=== PATIENT | male | born 1970 | race Caucasian/White ===

== ENCOUNTER 2018-09-17 11:13 | Inpatient (IN) | payer BC, OTHER ==
--- NOTE | 2018-09-17 12:03 | ED ---
Bite Injury/Animal - HPI Summary HPI Summary: Patient is a 47 y/o M presenting to ED with complaints of swelling of left thumb , red-streaking of left arm up to elbow after a cat bite. He states that he was bit by the cat two days ago, swelling at left thumb onset yesterday, red- streaking onset today. During evaluation, he states that the area is starting to feel warm. He additionally reports limited ROM of left thumb. No fever is reported, but patient reports that he has recently gotten over the flu. Cat is 17 years old and belongs to a friend, patient was watching the cat for the day. Patient's test case developer who is present states that the cat had, "old, rotten teeth" . Cat is believed to be fully vaccinated. No SOB, chest pain reported. PSHx of colon surgery for diverticulitis, patient denies taking any daily medications. On triage, pain is rated 2/10. Nothing is noted to aggravate/alleviate Sx. Home medications, allergies, and nurse's note are reviewed. - History of Current Complaint Chief Complaint: EDAnimalBite Stated Complaint: CAT BITE ON FINGER PER PT Time Seen by Provider: 09/17/18 11:39 Hx Obtained From: Patient, Other: - test case developer Onset of Injury: Happened days ago - bite onset two days ago, swelling yesterday , streaking/warmness today, Still Present Type of Bite: Pet - cat Has Animal Been Immunized?: Yes - believed to be Severity Currently: Mild - 2/10 Pain Intensity: 2 Pain Scale Used: 0-10 Numeric - 2/10 Character: Puncture Aggravating Factor(s): Nothing Alleviating Factor(s): Nothing Associated Signs And Symptoms: Positive: Erythema, Swelling, Lymphadenopathy, Limited ROM - Allergies/Home Medications Allergies/Adverse Reactions: Allergies Allergy/AdvReac Type Severity Reaction Status Date / Time methotrexate AdvReac Eyes Verified 09/17/18 11:22 Itchy/Swollen/Red/Watery PMH/Surg Hx/FS Hx/Imm Hx Endocrine/Hematology History: Denies: Hx Diabetes Cardiovascular History: Denies: Hx Hypertension History: Denies: Hx Renal Disease - Surgical History Surgery Procedure, Year, and Place: 3 hernia surgeries with mesh R side, R salivary gland removed Infectious Disease History: No Infectious Disease History: Denies: Traveled Outside the [place] in Last 30 Days - Family History Known Family History: Positive: Cardiac Disease, Diabetes - Social History Substance Use Type: Reports: None Smoking Status (MU): Current Every Day Smoker Review of Systems Negative: Fever Negative: Chest Pain Negative: Shortness Of Breath Positive: Edema - of left thumb Skin: Other - POSITIVE - CAT BITE, RED STREAKING, WARMNESS OF LEFT ARM All Other Systems Reviewed And Are Negative: Yes Physical Exam - Summary Physical Exam Summary: Appearance: well appearing, no pain distress Skin: warm, dry, reflects adequate perfusion; puncture wound of left thumb, lymphangetic streaking up to left axilla, adenopathy at left axilla, Head/face: normal Eyes: EOMI, DEBBIE ENT: mucous membranes moist Neck: supple, non-tender Respiratory: CTA, breath sounds present Cardiovascular: RRR, pulses symmetrical Abdomen: non-tender, soft Bowel Sounds: present Musculoskeletal: normal, strength/ROM intact Neuro: normal, sensory motor intact, A&Ox3 Triage Information Reviewed: Yes Vital Signs On Initial Exam: Initial Vitals Temp Pulse Resp BP Pulse Ox 97.8 F 69 15 135/83 95 09/17/18 11:20 09/17/18 11:20 09/17/18 11:20 09/17/18 11:20 09/17/18 11:20 Vital Signs Reviewed: Yes Diagnostics - Vital Signs Vital Signs Temp Pulse Resp BP Pulse Ox 09/17/18 11:20 97.8 F 69 15 135/83 95 - Laboratory Result Diagrams: 09/17/18 11:52 09/17/18 11:52 Lab Statement: Any lab studies that have been ordered have been reviewed, and results considered in the medical decision making process. - Radiology L hand Radiology Interpretation Completed By: Radiologist - IMPRESSION: NO ACUTE OSSEOUS INJURY. IF SYMPTOMS PERSIST, RECOMMEND REPEAT IMAGING. Bite Injury Course/Dx - Course Course Of Treatment: Nurse's notes reviewed. Patient with extensive lymphangitis from Bite to the left thumb. No evidence of tenosynovitis. X-ray negative for foreign body. Tetanus updated. Zosyn given here. Admit for further. - Diagnoses Differential Diagnosis/HQI/PQRI: Positive: Superficial Infection, Deep Space Infection, Tenosynovitis, Other - abscess Provider Diagnosis: Cat bite, Lymphadenitis - Provider Notifications Discussed Care Of Patient With: Sabine Goldsmith Time Discussed With Above Provider: 11:56 Instructed by Provider To: Other - Patient's case was discussed with Dr. Goldsmith, Dr. Goldsmith accepts for admission. Discharge - Sign-Out/Discharge Documenting (check all that apply): Patient Departure - admit Patient Received Moderate/Deep Sedation with Procedure: No - Discharge Plan Condition: Fair Disposition: ADMITTED TO [facility] Referrals: Tulio Terry MD [Primary Care Provider] - - Billing Disposition and Condition Condition: FAIR Disposition: Admitted to [facility] - Attestation Statements Document Initiated by Scribe: Yes Documenting Scribe: ARABELLA MADISON Provider For Whom Scribe is Documenting (Include Credential): SKYLA VALENCIA MD Scribe Attestation: IARABELLA, scribed for SKYLA VALENCIA MD on 09/17/18 at 1303. Scribe Documentation Reviewed: Yes Provider Attestation: The documentation as recorded by the ARABELLA pitt accurately reflects the service I personally performed and the decisions made by , SKYLA VALENCIA MD Status of Scribe Document: Viewed
[2018-09-17 12:06] LABS: ABS Basophils 0.1 10^3/ul (0-0.2); ABS Eosinophils 0.4 10^3/ul (0-0.6); ABS Lymphocytes 1.4 10^3/ul (1.0-4.8); ABS Monocytes 0.8 10^3/ul (0-0.8); ABS Neutrophils 6.2 10^3/ul (1.5-7.7); ABS Nucleated RBC 0 10^3/ul; Eosinophil % 4.2 %; Hematocrit 43 % (36-46); Hemoglobin 14.9 g/dL (14.0-18.0); Lymphocyte % 16.2 %; Mean Corpuscular HGB Conc 35 g/dL (31-36); Mean Corpuscular Hemoglobin 34 pg (27-31); Mean Corpuscular Volume 97 fL (80-94); Mean Platelet Volume 7.4 fL (7.4-10.4); Nucleated Red Blood Cells % 0; Platelet Count 217 10^3/uL (150-450); Red Blood Count 4.42 10^6 /uL (4.18-5.48); Red Cell Distribution Width 14 % (10.5-15); White Blood Count 8.9 10^3/uL (3.5-10.8)
[2018-09-17 12:24] LABS: Albumin 4.5 g/dL (3.2-5.2); Albumin/Globulin Ratio 1.8 (1-3); BUN/Creatinine Ratio 18.9 (8-20); Calcium 9.2 mg/dL (8.6-10.3); EGFR Non-African American 90.1 (>60); Globulin 2.5 g/dL (2-4); Potassium 3.9 mmol/L (3.5-5.0); Total Bilirubin 0.8 mg/dL (0.2-1.0)
[2018-09-17] MEDS ORDERED: Acetaminophen TAB* 325 MG PO PRN (12:37)
[2018-09-17] MEDS ORDERED: Ondansetron INJ* 2 MG/ML VIAL IV PRN (12:37)
[2018-09-17] MEDS ORDERED: Piperacillin/Tazobac ADVAN(*) 3.375 GM in NS 0.9% 100 ML* 100 ML IVPB ONE (12:39)
[2018-09-17] MEDS ORDERED: Tetan/Diph/Pertus SYR(Tdap)* 0.5 ML SYR(BOOSTRIX) use SYR IM ONE (12:42)
[2018-09-17] MEDS ORDERED: Zosyn per Pharmacy* NOTE FOLLOW UP SCH (13:00)
--- NOTE | 2018-09-17 14:11 | HP ---
CC: Dr. Tulio Terry; Dr. Sabine oGldsmith* ADMISSION HISTORY AND PHYSICAL: DATE OF ADMISSION: 09/17/18 PRIMARY CARE PROVIDER: Dr. Tulio Terry. MY ATTENDING WHILE IN THE HOSPITAL: Dr. Sabine Goldsmith* (dictated by PEDRITO Rockwell). CHIEF COMPLAINT: Redness and swelling in the left upper extremity x3 days after a cat bite. HISTORY OF PRESENT ILLNESS: Mr. Maier is a 47-year-old male with a past medical history significant for diverticulitis complicated by colovesicular fistula; history of heavy alcohol abuse for 3 years, now in remission, who presents to the emergency department after for 1 week he was feeling very poorly with fevers, chills, shortness of breath, abdominal pain, and diarrhea, which he attributed to a flu-like illness. He was cat-sitting for a well known domesticated house cat, who bit his thumb. The patient states the cat was up to date on his vaccinations per the beauty director. The patient did not seek any medical attention at that time, but did do appropriate wound care with washing with soap and water, applying Neosporin and applying another wound topical application in an attempt to "draw out the bacteria." The patient had full range of motion after the bite; however, over the past 2 days, the swelling in his thumb has gotten worse and then this morning when he woke up, the swelling had spread all the way down his arm and a streak to his axilla. The patient states that this morning he had pain with movement in his left elbow and shoulder, but still retained full range of motion. The patient states that the range of motion of his thumb was decreased. The patient denies other pain. No fevers or chills since his flu syndrome has resolved, which occurred yesterday. The patient states that he has had intermittent abdominal pain for years now, but it is in his epigastric region and is accompanied with significant amount of bright red blood per rectum after this. The patient states that this happened very frequently while he was drinking alcohol and has persisted since then with a decreased frequency. The patient has not been evaluated by fur buyer. The patient has never had a colonoscopy. Due to concern for cat bite with lymphangitic spread, we were asked to evaluate the patient for admission to the hospital. PAST MEDICAL HISTORY: Colovesicular fistula due to complicated diverticulitis; sarcoidosis, in remission after 2 years of steroids; viral meningitis as a child ; history of recent alcohol abuse, now in remission. PAST SURGICAL HISTORY: Partial colectomy, bladder repair, vasectomy, 3 hernia repairs. MEDICATIONS: The patient takes no routine medications. ALLERGIES: METHOTREXATE caused mucositis. FAMILY HISTORY: The patient's mother of an OH at 73. The patient's biological father had diabetes mellitus, but it is unknown what he of. The patient has 2 siblings who of complications of drug abuse. The patient has a brother who has difficult to control hypertension and 6 other siblings who are healthy. SOCIAL HISTORY: The patient smokes 3 to 4 cigarettes a day. The patient abused alcohol to a degree that he cannot quantify how much alcohol he drank for approximately 3 years, but is currently in remission. The patient takes edible marijuana daily. The patient has no other illicit drug use. 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 The patient is . The patient has no children. The patient's surrogate decision maker will be his partner, Dalia Corcoran. REVIEW OF SYSTEMS: A 14-point review of systems was reviewed with the patient and is negative except as above in the HPI. PHYSICAL EXAMINATION GENERAL: The patient is a 47-year-old male, who appears stated age and sitting comfortably in bed, in no acute distress. VITAL SIGNS: At the time of evaluation, temperature 97.8, pulse rate 61, respiratory rate 15, oxygen saturation 95% on room air, blood pressure 135/83. HEENT: Head: Normocephalic, atraumatic. Sclerae anicteric. No conjunctival injection. Nasal mucosa moist. Oral mucosa moist. No pharyngeal erythema, discharge, or exudate. NECK: Supple, nontender. No lymphadenopathy. No carotid bruits auscultated. No JVD. RESPIRATORY: Clear to auscultation bilaterally. No wheezes, rales, or rhonchi. Good air exchange bilaterally. CARDIAC: Regular rate and rhythm. No clicks, murmurs, gallops, or rubs. Pulses are 2+ in the bilateral dorsalis pedis, posterior tibialis, and radial areas. ABDOMEN: Soft, nontender, nondistended. Bowel sounds present and normoactive in all 4 quadrants. No hepatosplenomegaly. No abdominal bruits auscultated. No hepatojugular reflux. GENITOURINARY: No suprapubic or CVA tenderness. NEURO: Cranial nerves II through XII grossly intact. No focal deficits. Alert and oriented x3. PSYCHIATRIC: Pleasant and cooperative. SKIN: Clean, dry, and intact. No rash. The patient has 2 small puncture wounds on his left thumb on the lateral aspect, which are red and swollen. The patient is able to move his thumb at its base, but is unable to flex it. The patient has straight line of red streaking up the medial aspect of his arm and to his armpit. The patient has palpable tender lymph nodes in his right axilla. There is no suppuration. There is no fluctuant pocket of abscess. DIAGNOSTIC STUDIES/LAB DATA: White blood cell count 8.9, hemoglobin 14.9, MCV 97, MCH 34, platelet count 217. Sodium 136, potassium 3.9, chloride 107, carbon dioxide 22, anion gap 7, BUN 17, creatinine 0.9, glucose 101, lactic acid 0.6, calcium 9.2. Bilirubin 0.8, AST 33, ALT 99, alkaline phosphatase 48. Protein 7.0, albumin 4.5, globulin 2.5. Studies: Hand x-ray shows no acute bony abnormality. ASSESSMENT AND PLAN: Impression: Mr. Maier is a 47-year-old male with past medical history significant for complicated diverticulitis with colovesicular fistula and partial colectomy; history of alcohol abuse; and history of sarcoidosis, now in remission, who had a cat bite on Monday with progressive worsening of swelling and pain in his hand with spreading up his arm and into his armpit. The patient will be admitted to the hospital for IV antibiotics due to concern for risk for systemic infection. 1. Cat bite with associated cellulitis and lymphangitic spread. The patient has no signs of systemic infection at this time except for lymph nodes in his armpit being swollen and lymphangitic spread up his arm. The patient has no white blood cell count, no fevers, no chills, no shortness of breath, no diarrhea. The patient has applied topical antibiotic treatment, but has taken no other antibiotics. We will start the patient on Zosyn and likely transition to oral Augmentin tomorrow if his disease improves. The patient will be given a tetanus shot. Local wound care has already been performed. The cat that bit the patient is up-to-date on his vaccinations and there is no concern for rabies. 2. History of colovesicular fistula, diverticulitis. The patient has intermittent abdominal pain with bright red blood per rectum in a similar pattern to when he had the colovesicular fistula. The patient is asymptomatic at this time; however, close followup with his primary care provider and Gastroenterology should be performed. The patient has a normal hemoglobin at this time and macrocytosis is possibly related to alcohol abuse. The patient should have outpatient iron, B12, and folate studies if indicated. 3. DVT prophylaxis: The patient will be up ad daniel. 4. FEN: The patient will have a regular unrestricted diet. There is no need for fluids at this time. 5. Transaminitis. The patient has a slight transaminitis with an ALT greater than AST elevation. This is likely related to the patient's recent viral illness. It does not have a correct pattern for continued alcohol abuse and the patient incredibly states that he is abstinent. These should be repeated at some point in the future to assess for alcoholic hepatosteatosis, though this is not likely the cause given the timing of his last drink. Other causes of elevated LFTs should be considered if the patient has persistent transaminitis. 6. Code status: The patient would like to be a full code. TIME SPENT: Approximately 40 minutes was spent on the admission of this patient , 20 of which was spent [id number] with the patient obtaining history and physical and discussing treatment plan. This plan was discussed with my attending, Dr. Sabine Goldsmith, and she is in agreement. PEDRITO ROCKWELL [id number]/[facility] #: [id number] CLAUDE
[2018-09-17] MEDS: ZOSYN 3.375 GM Q8H per EXTENDED INFUSION IVPB SCH ×2 (17:15)
[2018-09-18] MEDS: ZOSYN 3.375 GM Q8H per EXTENDED INFUSION IVPB SCH ×6 (01:05→17:08)
[2018-09-18 08:31] LABS: ABS Basophils 0.1 10^3/ul (0-0.2); ABS Eosinophils 0.5 10^3/ul (0-0.6); ABS Lymphocytes 1.7 10^3/ul (1.0-4.8); ABS Monocytes 0.8 10^3/ul (0-0.8); ABS Neutrophils 3.8 10^3/ul (1.5-7.7); ABS Nucleated RBC 0 10^3/ul; Hematocrit 42 % (36-46); Hemoglobin 14.6 g/dL (14.0-18.0); Lymphocyte % 25.2 %; Mean Corpuscular HGB Conc 35 g/dL (31-36); Mean Corpuscular Hemoglobin 34 pg (27-31); Mean Corpuscular Volume 98 fL (80-94); Mean Platelet Volume 7.7 fL (7.4-10.4); Nucleated Red Blood Cells % 0.1; Platelet Count 216 10^3/uL (150-450); Red Blood Count 4.28 10^6 /uL (4.18-5.48); Red Cell Distribution Width 14 % (10.5-15); White Blood Count 6.9 10^3/uL (3.5-10.8)
[2018-09-18 08:51] LABS: EGFR African American 96.5 (>60); EGFR Non-African American 79.8 (>60); Potassium 3.9 mmol/L (3.5-5.0)
--- NOTE | 2018-09-18 14:14 | PN ---
Subjective Date of Service: 09/18/18 Interval History: Patient reports he feels well today. Reports swelling on left hand has decreased since admission. Reports left thumb swelling is still present. Reports redness on hand and up are has lightened and receded slightly since admission last evening.Denies fever, chills, nausea, vomiting, diarrhea. Objective Active Medications: Acetaminophen (Tylenol Tab*) 650 mg PO Q6H PRN PRN Reason: FEVER/PAIN Piperacillin Sod/Tazobactam (Sod 3.375 gm/ Sodium Chloride) 100 mls @ 25 mls/ hr IVPB Q8H [facility] Last Admin: 09/18/18 08:58 Dose: 25 mls/hr Ondansetron HCl (Zofran Inj*) 4 mg IV Q6H PRN PRN Reason: NAUSEA Pharmacy Consult (Zosyn Per Pharmacy*) 1 note FOLLOW UP .ZOSYN PER PHARMACY [facility] Vital Signs - 8 hr 09/18/18 09/18/18 07:15 11:14 Temperature 97.7 F 98.0 F Pulse Rate 56 59 Respiratory 20 20 Rate Blood Pressure 128/77 120/87 (mmHg) O2 Sat by Pulse 98 96 Oximetry Oxygen Devices in Use Now: None Appearance: Comfortable, NAD Eyes: No Scleral Icterus Ears/Nose/Mouth/Throat: Clear Oropharnyx, Mucous Membranes Moist Neck: NL Appearance and Movements; NL JVP Respiratory: Symmetrical Chest Expansion and Respiratory Effort, Clear to Auscultation Cardiovascular: NL Sounds; No Murmurs; No JVD, RRR, No Edema Abdominal: NL Sounds; No Tenderness; No Distention Lymphatic: No Cervical Adenopathy, No Axillary Adenopathy Extremities: - - Mild swelling and redness to left hand underneath thumb and left thumb. Redness extends to mid bicep on inner ascpet of left arm. 3 small scabs on left thumb Skin: - - as above Neurological: Alert and Oriented x 3 Nutrition: Taking PO's Result Diagrams: 09/18/18 08:00 09/18/18 08:00 Additional Lab and Data: Laboratory Results - last 24 hr 09/17/18 09/18/18 09/18/18 19:54 08:00 08:00 WBC 6.9 RBC 4.28 Hgb 14.6 Hct 42 MCV 98 H MCH 34 H MCHC 35 RDW 14 Plt Count 216 MPV 7.7 Neut % (Auto) 54.9 Lymph % (Auto) 25.2 [place] % (Auto) 11.3 Eos % (Auto) 7.0 Baso % (Auto) 1.6 Absolute Neuts (auto) 3.8 Absolute Lymphs (auto) 1.7 Absolute Monos (auto) 0.8 Absolute Eos (auto) 0.5 Absolute Basos (auto) 0.1 Absolute Nucleated RBC 0 Nucleated RBC % 0.1 Sodium 140 Potassium 3.9 Chloride 108 Carbon Dioxide 21 L Anion Gap 11 BUN 13 Creatinine 1.00 Est GFR ( Amer) 96.5 Est GFR (Non-Af Amer) 79.8 BUN/Creatinine Ratio 13.0 Glucose 131 H Calcium 9.0 HIV 1&2 Antibody Nonreactive Microbiology and Other Data: Microbiology 09/17/18 11:56 Aerobic Blood Culture - Preliminary Blood Venous No Growth Day 1 Anaerobic Blood Culture - Preliminary No Growth Day 1 09/17/18 11:52 Aerobic Blood Culture - Preliminary Blood Venous No Growth Day 1 Anaerobic Blood Culture - Preliminary No Growth Day 1 Assess/Plan/Problems-Billing Assessment: 47 yr old male with pmh colovesicular fistula, sarcoidosis, alcohol abuse; whp presented to ED with swelling and redness to LUE after cat bit - Patient Problems (1) Cat bite involving extremity Comment: - Cat bite on left thumb one week ago which led to redness and swelling (2) Cellulitis Comment: - Admitted after 2 days of increase redness and swelling to left thumb and left arm. - Patient noted redness increase to left armpit therefore presented to ED 09/17 - Started on Zosyn in ED which has been continued inpatient. Plan to discharge on Augmentin. - Prelim blood cultures no growth - Afebrile, no leukocytosis, no tachycardia (3) Lymphadenopathy Comment: - Lymph nodes noted to be swollen in armpit on exam in ED, but today resolved. (4) Colovesical fistula Comment: - Hx of colovesical fistula - Reports he has has intermittent abd pain and bright red blood per rectum - Patient will need close follow up with PCP and GI (5) Full code status (6) DVT prophylaxis Comment: - Ambulation Attending: Raymond Tadeo
[2018-09-19] MEDS: ZOSYN 3.375 GM Q8H per EXTENDED INFUSION IVPB SCH ×4 (01:32→09:05)
[2018-09-19 08:14] VITALS: BP 146/90
[2018-09-19 08:49] LABS: ABS Basophils 0.1 10^3/ul (0-0.2); ABS Eosinophils 0.6 10^3/ul (0-0.6); ABS Lymphocytes 1.9 10^3/ul (1.0-4.8); ABS Monocytes 0.9 10^3/ul (0-0.8); ABS Neutrophils 3.3 10^3/ul (1.5-7.7); ABS Nucleated RBC 0 10^3/ul; Eosinophil % 8.3 %; Hematocrit 44 % (36-46); Hemoglobin 15.5 g/dL (14.0-18.0); Lymphocyte % 28.8 %; Mean Corpuscular HGB Conc 35 g/dL (31-36); Mean Corpuscular Hemoglobin 34 pg (27-31); Mean Corpuscular Volume 98 fL (80-94); Mean Platelet Volume 7.7 fL (7.4-10.4); Nucleated Red Blood Cells % 0.2; Platelet Count 255 10^3/uL (150-450); Red Blood Count 4.54 10^6 /uL (4.18-5.48); Red Cell Distribution Width 13 % (10.5-15); White Blood Count 6.8 10^3/uL (3.5-10.8)
[2018-09-19 09:02] LABS: Albumin 4.6 g/dL (3.2-5.2); Albumin/Globulin Ratio 1.8 (1-3); BUN/Creatinine Ratio 14.5 (8-20); Calcium 9.6 mg/dL (8.6-10.3); EGFR African American 86.4 (>60); EGFR Non-African American 71.4 (>60); Globulin 2.6 g/dL (2-4); Potassium 4.1 mmol/L (3.5-5.0); Total Bilirubin 0.6 mg/dL (0.2-1.0); Total Protein 7.2 g/dL (6.4-8.9)
--- NOTE | 2018-09-19 13:09 | DS ---
CC: Dr. Terry* DISCHARGE SUMMARY: DATE OF ADMISSION: 09/17/18 DATE OF DISCHARGE: 09/19/18 PRIMARY CARE PROVIDER: Dr. Terry. ATTENDING PHYSICIAN: Dr. Raymond Tadeo* (dictated by Mt Shabazz NP). PRIMARY DIAGNOSES: 1. Cellulitis secondary to a cat bite. 2. 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 SECONDARY DIAGNOSES: 1. History of sarcoidosis, in remission after 2 years of steroids. 2. Viral meningitis as a child. 3. Recent alcohol abuse, last drink greater than a month ago. CONSULTATIONS WHILE IN THE HOSPITAL: No consultations. PROCEDURES WHILE IN THE HOSPITAL: No procedures. STUDIES WHILE IN THE HOSPITAL: Hand x-ray: Impression: No acute osseous injury. If the symptoms persist, I recommend repeat imaging. DISCHARGE HOME MEDICATIONS: [place] Medication: Augmentin 875 p.o. b.i.d. x12 days. Continued Home Medications: The patient is not on any home medications. HISTORY OF PRESENT ILLNESS/HOSPITAL COURSE: Mr. 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 Please see history and physical dictated by PEDRITO Castellanos for complete summary of events leading up to hospitalization, but in short, the patient presented to the emergency room with redness and swelling to the left thumb and hand with redness streaking up left arm into the armpit. The patient reported that he had a cat bite a week before. In addition, he reports he had flu-like symptoms a week ago, but not recently and these have resolved. Given the patient's quick progression of cellulitis, he was admitted for further evaluation and treatment with IV antibiotics. At the time of his presentation, there was no sign of systemic infection except a lymph node being swollen in his left armpit and he was pancultured. He was started on Zosyn IV. The patient was admitted to the medical floor and Zosyn IV was continued. The patient's redness and swelling has greatly improved. The patient has remained free from signs of systemic infection as he has no leukocytosis, tachycardia, fever, chills. Given the patient's improvement, he will be discharged home today. It should also be mentioned that on the patient's admission, he did admit to the admitting provider that he has been having intermittent abdominal pain with bright red blood per rectum. He reports these symptoms have been going on for years now. He reports that they were worse when he was drinking daily vodka. Since he has stopped drinking daily vodka about a month ago, these symptoms of abdominal pain and bright red blood per rectum have significantly decreased and are only intermittent. Given this report, the patient had labs, which revealed an elevated MCV and elevated MCH. In addition, he was noted to have an elevated AST and ALT. While the patient was inpatient, he has denied abdominal pain and bright red blood per rectum. Once again, the patient is stable for discharge home today. REVIEW OF SYSTEMS: General: No fever, no anorexia, no weight loss. Respiratory: No shortness of breath, no wheezing, no cough. Cardiac: No chest pain, no palpitations, no shortness of breath. GI: No abdominal pain, no diarrhea, no constipation, no nausea, no vomiting. : No dysuria, no increase in frequency, no hematuria. Musculoskeletal: No joint pain, no muscle pain. Skin: The patient reports great improvement in redness and swelling to left upper extremity. Psych: No depression, no anxiety. PHYSICAL EXAMINATION: General: Mr. Maier is a 47-year-old male who is sitting in the chair working on his laptop. He appears to be in no acute distress. He appears his stated age. Vital Signs: Temp 98.6, HR 65, RR 14, O2 saturation is 98% on room air, BP is 146/90. HEENT: EOMs intact. PERRLA. Oral mucosa is moist without lesion. Posterior pharynx is clear. Neck: Full range of motion. No lymphadenopathy. Supple. Lymphatic: No axillary lymphadenopathy bilaterally. Respiratory: Symmetrical chest expansion. No accessory muscle use. Lungs are clear to auscultation. No rhonchi, wheezes, or rales. CV: Regular rate and rhythm. S1, S2 present. No murmurs, rubs, or gallops. Extremities: Skin is warm and smooth bilaterally. No edema. No clubbing or cyanosis. Pedal pulses are 2+ bilaterally. Musculoskeletal: Full range of motion. No pain or deformities. Abdomen: Soft, nontender to palpation. Bowel sounds are normoactive throughout. Neuro: Awake, alert, and oriented x4. No focal deficits or weakness. Skin: The patient has 3 small scabbed areas on the left thumb. Left thumb is only slightly swollen and is much improved from yesterday's event. Very scant pink/redness noted on left upper extremity near AC. This is greatly improved from previous exam as the patient had redness extending from left thumb into left armpit. Remainder of the skin is grossly intact. DIAGNOSTIC STUDIES/LABORATORY DATA: WBC 6.8, hemoglobin 14.5, hematocrit 44, platelets 255. Sodium 137, potassium 4.1, chloride 109, carbon dioxide 22, BUN 15, creatinine 1.10. Bilirubin 0.60, AST 75, ALT 118, alk phos 50, total protein 7.2, albumin 4.6, globulin 2.6, albumin/globulin ratio 1.8. DISCHARGE PLAN/FOLLOWUP: 1. Cellulitis secondary to cat bite: As mentioned above, the patient received IV Zosyn while admitted. The patient's symptoms were greatly improved. The patient has remained free from signs and symptoms of systemic infection. The patient's blood cultures have no growth so far. The patient will be discharged on Augmentin 875 mg p.o. b.i.d. to complete a 14-day course antibiotics. The patient has been encouraged to follow up with his primary care for reassessment. 2. History of colovesical fistula and diverticulitis/bright red blood per rectum/abdominal pain: The patient reported intermittent abdominal pain with bright red blood per rectum similar to the pattern when he had a colovesicular fistula. He reports these symptoms have been going on for over a year while he was drinking, but have improved since he has stopped drinking daily. I discussed the importance of following up with his primary care and his analytical sciences director as soon as possible. The patient states understanding. It should be noted that the patient's hemoglobin are normal at this time. 3. Transaminitis: As mentioned above, the patient's AST and ALT are slightly elevated. This could be due to the patient's recent viral illness as reported in HPI above, recent infection, or relating to alcohol abuse. I have discussed these findings with the patient and encouraged him to have his AST, ALT and liver function tests redrawn by his primary care. I have also encouraged him to follow up with GI and he states understanding. 4. Education: The patient was educated on signs and symptoms of new or worsening condition and when to return to the emergency department. The patient stated understanding. 5. Followup: As mentioned above, the patient needs to make a followup with his primary care and analytical sciences director. The patient states understanding. This is a summarized report of the complex medical history and hospital stay. For further details, please see the entire medical record. TIME SPENT: Approximately 40 minutes was spent on this discharge, greater than half the time was spent [id number] with the patient discussing discharge plans and instructions. Reviewed by MT SHABAZZ NP 09/24/18 @ 1342 [id number]/CPS #: [id number] CLAUDE
== END 2018-09-19 11:15 | disposition home or self-care (01) | DRG 603 ==
LOC: ED 11:13 → MED 12:37 → OBSVTOIN 09-18 14:00
PROVIDERS: ADMIT Internal Medicine; ATTEND Student in an Organized Health Care Education/Training Program
DX: L03.012 Cellulitis of left finger (principal); F17.210 Nicotine dependence, cigarettes, uncomplicated; D86.9 Sarcoidosis, unspecified; R59.0 Localized enlarged lymph nodes; R74.0 Nonspecific elevation of levels of transaminase and lactic acid dehydrogenase [LDH]; W55.01XA Bitten by cat, initial encounter; Y92.009 Unspecified place in unspecified non-institutional (private) residence as the place of occurrence of the external cause; Z88.8 Allergy status to other drugs, medicaments and biological substances; Z82.49 Family history of ischemic heart disease and other diseases of the circulatory system; Z83.3 Family history of diabetes mellitus; Z98.52 Vasectomy status
CPT/HCPCS: 36415; 80048; 80053; 83605; 85025; 86703; 87040; 90715; 99284; G0378; J2543